=== PATIENT | female | born 1960 | race African-American/Black ===

== ENCOUNTER 2016-11-19 22:32 | Emergency (ER) | payer OTHER ==
[~2016-11-19] VITALS: Ht 157.5 cm; Wt 70.8 kg
[2016-11-19 23:04] VITALS: BP 128/85
--- NOTE | 2016-11-20 01:00 | NUR ---
PATIENT LEFT WITHOUT BEING SEEN BY DR. LOPEZ. NO FURTHER CARE PROVIDED FOR PATIENT. PATIENT'S NAME WAS CALLED THREE TIMES BY HOME HEALTH CLINICAL SUPERVISOR; NO RESPONSE.
== END 2016-11-20 01:00 | disposition left against medical advice (07) ==
LOC: MED 22:32
DX: M79.661 Pain in right lower leg (principal); Z53.21 Procedure and treatment not carried out due to patient leaving prior to being seen by health care provider

== ENCOUNTER 2017-03-08 00:23 | Emergency (ER) | payer OTHER ==
[~2017-03-08] VITALS: Ht 157.5 cm; Wt 65.8 kg
[2017-03-08 00:28] VITALS: BP 145/80
--- NOTE | 2017-03-08 00:38 | NUR ---
PATIENT AMBULATED TO ER BED 6.
--- NOTE | 2017-03-08 00:40 | NUR ---
PATIENT BEING EVALUATED BY DR. WALTON.
--- NOTE | 2017-03-08 00:49 | NUR ---
56Y/F PATIENT PRESENTS TO ED WITH C/O LACERATION TO LT.THUMB . PT STATES RT THUMB LACERATION, SHE SLICED HER THUMB WITH BROKEN CERAMICS AT 1900. DENIES N/V/D; SKIN IS PINK/WARM/DRY, LT. THUMB LACERATION; AAOX4 WITH EVEN AND STEADY GAIT; LUNGS CLEAR BL; HR EVEN AND REGULAR; PT DENIES ANY FEVER, CP, SOB, OR COUGH AT THIS TIME; PATIENT STATES PAIN OF 5/10 AT THIS TIME; VSS; PATIENT POSITIONED FOR COMFORT; HOB ELEVATED; BEDRAILS UP X2; BED DOWN. ER MD MADE AWARE OF PT STATUS.
[2017-03-08 01:00] VITALS: BP 128/74
--- NOTE | 2017-03-08 01:00 | NUR ---
Patient discharged with v/s stable. Written and verbal after care instructions given and explained. Patient verbalized understanding. Ambulatory with steady gait. All questions addressed prior to discharge. Advised to follow up with PMD.
== END 2017-03-08 01:00 | disposition home or self-care (01) ==
LOC: MED 00:23
DX: S61.011A Laceration without foreign body of right thumb without damage to nail, initial encounter (principal); I10 Essential (primary) hypertension; Z88.1 Allergy status to other antibiotic agents; Z88.8 Allergy status to other drugs, medicaments and biological substances; Z90.710 Acquired absence of both cervix and uterus; W26.8XXA Contact with other sharp object(s), not elsewhere classified, initial encounter; Y93.89 Activity, other specified; Y92.89 Other specified places as the place of occurrence of the external cause; Y99.8 Other external cause status
CPT/HCPCS: 12001; 99283

== ENCOUNTER 2017-08-22 18:52 | Inpatient (IN) | payer OTHER ==
[~2017-08-22] VITALS: Ht 157.5 cm; Wt 67.6 kg
[2017-08-22 19:36] VITALS: BP 126/80
--- NOTE | 2017-08-22 21:00 | NUR ---
TO ER BED 6
--- NOTE | 2017-08-22 21:16 | NUR ---
56Y/F PT. PRESENTS TO ED WITH C/O CHEST PAIN X 2DAYS. PT. STATES PAIN WHEN LYING DOWN, RADIATES TO BACK. NO TRAUMA, HX. HTN, DM, HIGH CHOLEATEROL. AAO X4, AMBULATORY WITH ATEDYA GIT. RESPIRATIONS ROOM AIR, EVEN AND UNLABORED. C/O PAIN 07/07, VSS, ER MADE AWARE OF PT. STATUS.
--- NOTE | 2017-08-22 21:35 | NUR ---
Patient being evaluated by Dr. Reyna at bedside.
[2017-08-22] MEDS ORDERED: NITROGLYCERIN 0.4 MG TAB SL ONE (21:50)
[2017-08-22] MEDS ORDERED: ASPIRIN 81 MG TAB.CHEW PO ONE (21:50)
[2017-08-22 22:24] LABS: BASOPHILS # (AUTO) 0.3 K/uL (0.00-0.22); EOSINOPHILS # (AUTO) 0.4 K/uL (0-0.4); HEMATOCRIT 35.5 % (36-48); HEMOGLOBIN 12.6 g/dL (12.0-16.0); LYMPHOCYTES # (AUTO) 2.7 K/uL (2.5-16.5); MEAN CORPUSCULAR HEMOGLOBIN 30 pg (27-31); MEAN CORPUSCULAR HGB CONC 35 g/dL (33-37); MEAN CORPUSCULAR VOLUME 85 fL (80-94); MONOCYTES # (AUTO) 0.6 K/uL (0.8-1.0); NEUTROPHILS # (AUTO) 5.5 K/uL (1.8-7.7); PLATELET COUNT (AUTO) 216 K/uL (140-450); RED BLOOD CELL COUNT(AUTO) 4.18 MIL/uL (4.20-5.40); RED CELL DISTRIBUTION WIDTH 12.3 % (11.6-13.7); WHITE BLOOD COUNT (AUTO) 9.5 K/uL (4.8-10.8)
[2017-08-22] MEDS ORDERED: HYDROcodone/APAP 5/325 MG 1 TAB TAB PO ONE (22:40)
[2017-08-22 22:45] LABS: ALBUMIN 3.2 g/dL (3.4-5.0); CARBON DIOXIDE 27.8 mmol/L (21-32); CREATININE 0.9 mg/dL (0.6-1.3); POTASSIUM 3.8 mmol/L (3.5-5.1); TOTAL BILIRUBIN 0.5 mg/dL (0.0-1.0)
[2017-08-22 23:24] LABS: APPEARANCE,URINE CLEAR (CLEAR); BILIRUBIN,URINE NEGATIVE (NEGATIVE); BLOOD, URINE NEGATIVE (NEGATIVE); COLOR,URINE YELLOW (YELLOW); LEUKOCYTE ESTERASE ,URINE NEGATIVE (NEGATIVE); NITRITE, URINE NEGATIVE (NEGATIVE); PH,URINE 5.5 (5.0-9.0); UGLUCOSE 3+ (NEGATIVE)
[2017-08-22 23:36] LABS: RBC,URINE 0-5 (RARE) /HPF (0-5)
[2017-08-23] MEDS ORDERED: MORPHINE SULFATE 4 MG/ML SYR IM ONE (00:45)
[2017-08-23] MEDS ORDERED: ONDANSETRON 4 MG ODT PO ONE (00:45)
[2017-08-23] MEDS ORDERED: MORPHINE SULFATE 4 MG/ML SYR ONE (00:54)
[2017-08-23] MEDS ORDERED: ONDANSETRON 4 MG ODT ONE (00:54)
--- NOTE | 2017-08-23 01:21 | NUR ---
Pt noted resting comfortably in bed. No distress noted.
--- NOTE | 2017-08-23 02:00 | NUR ---
PT.COMPLAINS OF ITCHING AND SCRATCH THE WHOLE BODY, NOTIFY DR. BULLARD; BENADRYL 25 MG IVP ADMINISTERED ORDERED.
--- NOTE | 2017-08-23 02:10 | NUR ---
IV 20 LT FA, IVP MEDS GIVEN-NADR AT THIS TIME
[2017-08-23] MEDS ORDERED: diphenhydrAMINE 50 MG/ML VIAL ONE (02:13)
[2017-08-23] MEDS: INSULIN DETEMIR 100 UNITS/ML 10 ML VIAL SUBQ SCH ×3 (02:25→21:11)
[2017-08-23] MEDS ORDERED: INSULIN HUMAN REGULAR 100 UNITS/ML 10 ML VIAL SUBQ ONE (02:55)
[2017-08-23] MEDS ORDERED: diphenhydrAMINE 50 MG/ML VIAL IVP ONE (02:55)
--- NOTE | 2017-08-23 03:00 | NUR ---
Patient will be admitted to care of DR DOHERTY. Admited to TELE. Will go to [id number]. Belongings list completed. Report to SALVADOR.
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
[2017-08-23] MEDS: MORPHINE SULFATE 4 MG/ML SYR IVP PRN ×2 (03:21→03:26)
[2017-08-23 03:24] VITALS: BP 114/80
--- NOTE | 2017-08-23 03:27 | NUR ---
LEVEMIR INSULIN NOT ADMINISTERED PATIENT REFUSED PATIENT STATES,"I NEVER TAKEN THIS MEDICATION I DON'T WANT IT.IT WILL DROP MY BLOOD SUGAR VERY LOW THAT'S TOO MUCH INSULIN FOR ME." I EXPLAINED TO THE PATIENT THAT HER BLOOD SUGAR IS HIGH THAT'S THE REASON WHY MD ORDERED THE INSULIN PATIENT STATES,"I UNDERSTAND BUT I JUST DON'T WANT IT."SO PATIENT REFUSED THE INSULIN. PATIENT IS ALSO NPO.
--- NOTE | 2017-08-23 03:27 | NUR ---
Note roque in EDM - 08/23/17 at 0427 by MEDRJJ Patient appears to be resting comfortably in bed. Vital Signs within normal limits. Respirations even and unlabored.
--- NOTE | 2017-08-23 04:02 | NUR ---
PATIENT IS COMPLAINING THAT SHE IS FEELING ITCHY AND IS REQUESTING FOR BENADRYL MD RINCON HAS BEEN PAGED. PATIENT WANTS ME TO SUGGEST TO MD IF HE CAN ORDER DILAUDID FOR HER BECAUSE DILAUDID DOESN'T MAKE HER ITCH.MD RINCON COVERING FOR MD DOHERTY HAS BEEN PAGED.
[2017-08-23] MEDS ORDERED: HYDROmorphone 1 MG/ML AMP IVP PRN (04:15)
[2017-08-23 04:30] VITALS: BP 107/60
--- NOTE | 2017-08-23 04:38 | NUR ---
PATIENT RECEIVED A DOSE OF BENADRYL FOR ITCHING.
--- NOTE | 2017-08-23 04:59 | NUR ---
PATIENT RESTING COMFORTABLY IN BED WILL CONTINUE TO MONITOR.
[2017-08-23] MEDS ORDERED: ATOR20TA PO (05:13)
[2017-08-23] MEDS ORDERED: INSU100S22 SC (05:14)
[2017-08-23] MEDS ORDERED: LISI5TAB18 PO (05:16)
[2017-08-23] MEDS ORDERED: QUET25TA PO (05:16)
--- NOTE | 2017-08-23 05:18 | NUR ---
Patient's Plan of Care was discussed and reviewed with ENTERPRISE ARCHITECT: SALVADOR BARRY
--- NOTE | 2017-08-23 05:30 | NUR ---
PATIENT STABLE IN NO DISTRESS RESTING IN BED WITH OXYGEN AT 2L NASAL CANNULA.WILL CONTINUE TO MONITOR.
--- NOTE | 2017-08-23 06:41 | NUR ---
PATIENT HAS BEEN SCREENED AND CATEGORIZED LOW NUTRITION RISK. PATIENT WILL BE SEEN WITHIN 7 DAYS OF ADMISSION. 08/29/17 TARA BRANHAM MS, RDN Addendum: 08/24/17 at [address] PATIENT HAS BEEN RESCREENED AND RECATEGORIZED MODERATE NUTRITION RISK. PATIENT WILL BE SEEN WITHIN 3-5 DAYS OF ADMISSION 08/26/17 - 08/28/[address]
--- NOTE | 2017-08-23 07:15 | NUR ---
RECEIVED PATIENT REPORT AT BEDSIDE. PATIENT AWAKE, ALERT AND ORIENTED. NO S/S OF DISTRESS NOTED. PATIENT ON 2L O2 VIA NC. NO SOB. PATIENT REPORTS 10/10 PRESSURE PAIN ON HER CHEST. WILL MEDICATE. PATIENT ON TELE MONITORING. BED LOWERED WITH CALL LIGHT WITHIN REACH. WILL CONTINUE TO MONITOR
--- NOTE | 2017-08-23 07:23 | NUR ---
PATIENT SLEEPING REPORT ENDORSED TO HERBERT MEI. HE WILL RESUME CARE OF THE PATIENT.
[2017-08-23 08:00] VITALS: BP 109/70
[2017-08-23] MEDS: ENOXAPARIN 40 MG/0.4 ML SYR SUBQ SCH (08:21)
[2017-08-23] MEDS: BLOOD GLUCOSE MONITORING 1 DEV DEV FS SCH ×5 (08:22→21:05)
[2017-08-23] MEDS ORDERED: ATORVASTATIN 20 MG TAB PO SCH (09:00)
[2017-08-23] MEDS ORDERED: ENOXAPARIN 40 MG/0.4 ML SYR SUBQ SCH (09:00)
[2017-08-23] MEDS ORDERED: LISINOPRIL 5 MG TAB PO SCH (09:00)
[2017-08-23 09:57] LABS: PROTHROMBIN TIME 9.5 secs (10.8-13.4)
[2017-08-23] MEDS ORDERED: REGADENOSON 0.4 MG/5 ML SYR IV SCH (11:30)
[2017-08-23] MEDS ORDERED: NITROGLYCERIN 2% 1 GM PKT TP SCH (11:30)
[2017-08-23 12:00] VITALS: BP 113/71
[2017-08-23] MEDS: INSULIN LISPRO SLIDING SCALE 100 UNITS/ML VIAL SUBQ PRN ×3 (12:34→21:10)
[2017-08-23] MEDS: HYDROmorphone PFS 2 MG/ML SYR IVP PRN ×3 (13:10→22:10)
--- NOTE | 2017-08-23 14:00 | NUR ---
PATIENT SEEN BY DR DOHERTY
[2017-08-23] MEDS: TRIAMCINOLONE 0.1% CRM 15 GM TUBE TP PRN (15:36)
[2017-08-23 16:00] VITALS: BP 103/68
--- NOTE | 2017-08-23 19:23 | NUR ---
PATIENT REPORT GIVEN AT BEDSIDE. PATIENT ENDORSED IN STABLE CONDITION
--- NOTE | 2017-08-23 19:24 | NUR ---
PATIENT IS CURRENTLY AWAKE ALERT ORIENTED RESTING IN BED DENIES PAIN AT THIS TIME BUT COMPLAINS OF FEELING SEVERE ITCHINESS AND COMPLAINS THAT CREAM IS NOT HELPING EFFECTIVE AND BENADRYL PO TAKES A LOT OF TIME TO WORK I PAGED MD DOHERTY EXCHANGE AND MD DAVIS IS TESTER ARMATURE OR FIELDS.WILL AWAIT FOR HIS CALL BACK.
--- NOTE | 2017-08-23 19:37 | NUR ---
MD DAVIS CALLED BACK AND WAS INFORMED THAT PATIENT IS COMPLAINING OF SEVERE ITCHINESS AND COMPLAINS THAT CREAM ORDERED FOR ITCHINESS ISN'T VERY EFFECTIVE AND ALSO THE BENADRYL PO IS TAKING A WHILE FOR IT TO WORK. GAVE NEW ORDERS.
[2017-08-23 20:00] VITALS: BP 122/65
--- NOTE | 2017-08-23 20:00 | NUR ---
Patient's Plan of Care was discussed and reviewed with INDUSTRIAL/ORGANIZATIONAL PSYCHOLOGIST: SALVADOR BARRY
[2017-08-23] MEDS: diphenhydrAMINE 50 MG/ML VIAL IVP PRN (20:23)
[2017-08-23] MEDS: NITROGLYCERIN 2% 1 GM PKT TP SCH (20:31)
--- NOTE | 2017-08-24 00:20 | NUR ---
PATIENT CURRENTLY AWAKE ON AND OFF STABLE NEEDS CONTINUE TO BE MET.VITALS STABLE WILL CONTINUE TO MONITOR.
[2017-08-24 00:23] VITALS: BP 96/68
[2017-08-24] MEDS ORDERED: HYDROcodone/APAP 5/325 MG 1 TAB TAB PO PRN (00:50)
[2017-08-24] MEDS: ACETAMINOPHEN 325 MG TAB PO PRN ×2 (01:42→10:57)
[2017-08-24] MEDS: TRIAMCINOLONE 0.1% CRM 15 GM TUBE TP PRN (02:19)
[2017-08-24] MEDS: diphenhydrAMINE 50 MG/ML VIAL IVP PRN ×3 (02:52→15:06)
[2017-08-24] MEDS: HYDROmorphone PFS 2 MG/ML SYR IVP PRN ×4 (02:53→17:46)
--- NOTE | 2017-08-24 03:00 | NUR ---
PATIENT CONTINUES TO BE STABLE COMPLAINS OF ITCHINESS BUT HAS BEEN MEDICATED ALREADY.PATIENT ABLE TO VERBALIZE NEEDS AND NEEDS CONTINUE TO BE MET.CALL LIGHT WITHIN REACH.
[2017-08-24 04:07] VITALS: BP 118/82
[2017-08-24] MEDS: NITROGLYCERIN 2% 1 GM PKT TP SCH ×2 (05:00→13:00)
--- NOTE | 2017-08-24 05:03 | NUR ---
PATIENT REFUSED NITROPATCH PATIENT STATES,"IT GIVES ME BAD HEADACHES I DON'T WANT IT." PATIENT REFUSED.
[2017-08-24] MEDS: BLOOD GLUCOSE MONITORING 1 DEV DEV FS SCH ×3 (05:53→16:30)
[2017-08-24] MEDS: INSULIN LISPRO SLIDING SCALE 100 UNITS/ML VIAL SUBQ PRN (06:07)
[2017-08-24] MEDS: ONDANSETRON 4 MG/2 ML VIAL IVP PRN ×2 (06:16→12:14)
--- NOTE | 2017-08-24 06:33 | NUR ---
PATIENT IS CURRENTLY RESTING IN BED NAUSEA IS SUBSIDING SLOWLY PATIENT'S NEED HAVE BEEN MET THROUGHOUT THE SHIFT.CALL LIGHT WITHIN REACH.
--- NOTE | 2017-08-24 07:31 | NUR ---
REPORT ENDORSED TO HERBERT RIVAS SHE WILL RESUME CARE OF THE PATIENT.
--- NOTE | 2017-08-24 07:32 | NUR ---
RECEIVED PT ON BED, AWAKE. NO SOB NOTED. NO C/O PAIN AT THIS TIME. IV TO LT WRIST PATENT AND INTACT. CHEST CLEAR. ABDOMEN SOFT, BOWELS SOUNDS PRESENT. NO EDEMA NOTED. NPO MAINTAINED FOR LEXISCAN AT 1230 HRS TODAY. INSTRUCTED PT TO CALL FOR ASSISTANCE, CALL LIGHT WITHIN REACH, PT VERBALIZED UNDERSTANDING.
[2017-08-24 07:37] LABS: BASOPHILS # (AUTO) 0.3 K/uL (0.00-0.22); BASOPHILS % (AUTO) 3.6 % (0.0-2.0); EOSINOPHILS # (AUTO) 0.3 K/uL (0-0.4); EOSINOPHILS % (AUTO) 4.1 % (0.0-4.0); HEMATOCRIT 36.2 % (36-48); LYMPHOCYTES # (AUTO) 2.8 K/uL (2.5-16.5); LYMPHOCYTES % (AUTO) 33.2 % (20.5-51.1); MEAN CORPUSCULAR HEMOGLOBIN 28 pg (27-31); MEAN CORPUSCULAR HGB CONC 33 g/dL (33-37); MEAN CORPUSCULAR VOLUME 85 fL (80-94); MONOCYTES # (AUTO) 0.7 K/uL (0.8-1.0); NEUTROPHILS # (AUTO) 4.3 K/uL (1.8-7.7); NEUTROPHILS % (AUTO) 51.1 % (42.2-75.2); PLATELET COUNT (AUTO) 222 K/uL (140-450); RED BLOOD CELL COUNT(AUTO) 4.26 MIL/uL (4.20-5.40); RED CELL DISTRIBUTION WIDTH 12.4 % (11.6-13.7); WHITE BLOOD COUNT (AUTO) 8.4 K/uL (4.8-10.8)
[2017-08-24 08:00] VITALS: BP 104/69
[2017-08-24 08:16] LABS: MAGNESIUM 1.9 mg/dL (1.8-2.4); PHOSPHORUS 4.2 mg/dL (2.5-4.9)
[2017-08-24 08:30] LABS: ANION GAP 7.9 (8-16); CARBON DIOXIDE 34.6 mmol/L (21-32); CREATININE 0.9 mg/dL (0.6-1.3); POTASSIUM 5.5 mmol/L (3.5-5.1)
[2017-08-24] MEDS: ENOXAPARIN 40 MG/0.4 ML SYR SUBQ SCH (08:35)
[2017-08-24] MEDS ORDERED: QUEtiapine FUMARATE 25 MG TAB PO SCH (09:00)
[2017-08-24] MEDS ORDERED: ASPIRIN 81 MG TAB.CHEW PO SCH (09:00)
[2017-08-24] MEDS ORDERED: LISINOPRIL 5 MG TAB PO SCH ×2 (09:00)
[2017-08-24 12:00] VITALS: BP 123/81
--- NOTE | 2017-08-24 12:20 | NUR ---
WHEELED TO NUCLEAR MED IN STABLE CONDITION BY GUILLAUME RAHMAN.
[2017-08-24] MEDS ORDERED: REGADENOSON 0.4 MG/5 ML SYR IV SCH (12:30)
--- NOTE | 2017-08-24 13:30 | NUR ---
LEXISCAN STRESS TEST DONE
--- NOTE | 2017-08-24 13:35 | NUR ---
[facility]. WILL ORDER PT'S DIET.
[2017-08-24] MEDS ORDERED: LORazepam 1 MG TAB PO PRN (14:05)
--- NOTE | 2017-08-24 14:32 | NUR ---
CM NOTE INITIAL REVIEW FAXED TO [facility] [phone] SANDRA SINGHA PH# [phone]
[2017-08-24] MEDS ORDERED: METOCLOPRAMIDE 10 MG/2 ML INJ VIAL IVP PRN (14:50)
--- NOTE | 2017-08-24 18:30 | NUR ---
DISCHARGE INSTRUCTIONS GIVEN TO PT WHICH VERBALIZED FULL UNDERSTANDING OF THE INSTRUCTIONS GIVEN AND THE NEED TO FOLLOW UP WITH PCP WITHIN 7 DAYS. ARM BANDS AND IV REMOVED, CANNULA TIP INTACT.
--- NOTE | 2017-08-24 18:35 | NUR ---
PT BACK FROM [facility] IN STABLE CONDITION. WILL ORDER PT'S DIET. Addendum: 08/24/17 at 1853 by Herlinda Vasquez RN DISREGARD ABOVE NOTES, WRONG ENTRY.
--- NOTE | 2017-08-24 18:45 | NUR ---
PT ESCORTED OUT TO THE PARKING LOT IN STABLE CONDITION, AMBULATORY. NO SOB NOTED. NO C/O PAIN AT THIS TIME. PT IS D/C HOME WITH DAUGHTER.
[2017-08-24] MEDS ORDERED: ATORVASTATIN 20 MG TAB PO SCH (21:00)
[2017-08-24] MEDS ORDERED: METOPROLOL 25 MG TAB PO SCH (21:00)
== END 2017-08-24 18:45 | disposition home or self-care (01) | DRG 243 ==
LOC: MED 18:52 → MTU 08-23 02:03 → OBSVTOIN 08-23 13:23
PROVIDERS: ADMIT Hospitalist; ATTEND Hospitalist
DX: K21.9 Gastro-esophageal reflux disease without esophagitis (principal); F20.9 Schizophrenia, unspecified; I10 Essential (primary) hypertension; E11.9 Type 2 diabetes mellitus without complications; E78.5 Hyperlipidemia, unspecified; F41.9 Anxiety disorder, unspecified; I25.10 Atherosclerotic heart disease of native coronary artery without angina pectoris; L30.9 Dermatitis, unspecified; Z88.6 Allergy status to analgesic agent; Z88.2 Allergy status to sulfonamides; Z88.1 Allergy status to other antibiotic agents; Z88.8 Allergy status to other drugs, medicaments and biological substances; Z79.899 Other long term (current) drug therapy
CPT/HCPCS: 96372; 96374; 99285; G0378; 36415; 71010; 80048; 80053; 81001; 82550; 82553; 82948; 83735; 84100; 84132; 84484; 85025; 85610; 85730; 87081; 87086; 93005; 93017; A9500; A9502; J1170; J1200; J1650; J1815; J2270; J2405; J2765; J2785; Q0092; Q0163; S0119

== ENCOUNTER 2018-02-28 13:55 | Emergency (ER) | payer OTHER ==
[~2018-02-28] VITALS: Ht 157.5 cm; Wt 56.7 kg
[~2018-02-28 13:55] MED LIST: ATOR20TA PO; INSU100S22 SC; LISI5TAB18 PO; QUET25TA PO
[2018-02-28 14:06] VITALS: BP 119/72
--- NOTE | 2018-02-28 14:40 | NUR ---
PATIENT CALLED FROM LOBBY NO ANSWER PATIENT IS LWBS.
== END 2018-02-28 14:40 | disposition left against medical advice (07) ==
LOC: MED 13:55
DX: L03.116 Cellulitis of left lower limb (principal); Z53.21 Procedure and treatment not carried out due to patient leaving prior to being seen by health care provider

== ENCOUNTER 2018-08-05 01:37 | Inpatient (IN) | payer OTHER ==
[2018-08-05] VITALS (7 sets, daily range): BP systolic 72–114; BP diastolic 43–68
[~2018-08-05] VITALS: Ht 157.5 cm; Wt 63.0 kg
--- NOTE | 2018-08-05 01:37 | NUR ---
57/F BIBA FROM HOME FOR POSSIBLE SYNCOPE AND CHEST PAIN. PT STATED THAT SHE WOKE UP, FELT NAUSEATED, WENT TO THE RESTROOM, PT STATED SHE WOKE UP ON THE BATHROOM FLOOR. PT TOOK A "QUARTER OF RICE KRISPY EDIBLE" ON ROUTE, PT DEVELOPED CHEST PAIN. PT WAS GIVEN ASPIRIN AND STARTED 1L NS BOLUS ON L FA 20G. PT AOX4, BEDREST AT THIS TIME, RR EVEN AND UNLABORED. PT REPORTS PRESSURE-LIKE L SIDED CP, RADIATING TO L SHOULDER. PT REPORTS DIZZINESS AND WEAKNESS. LUNG SOUNDS CLEAR BL. BS ACTIVE X4, ABD SOFT ROUND NONTENDER. BS 185 AT THIS TIME. HX HTN, DM, ANXIETY, HLD
--- NOTE | 2018-08-05 01:37 | NUR ---
LENNY ALS TO ER BED 4
[2018-08-05] MEDS ORDERED: NACL 0.9% 1,000 ML IV ONE ×2 (01:45→03:40)
[2018-08-05] MEDS ORDERED: ALPR1TAB2 PO (01:56)
[2018-08-05] MEDS ORDERED: QUET100T PO (01:56)
[2018-08-05] MEDS ORDERED: GABA300C PO (01:56)
[2018-08-05] MEDS ORDERED: METF750T PO (01:56)
[2018-08-05 02:26] LABS: BASOPHILS # (AUTO) 0.1 K/uL (0.00-0.22); BASOPHILS % (AUTO) 0.8 % (0.0-2.0); EOSINOPHILS # (AUTO) 0.2 K/uL (0-0.4); EOSINOPHILS % (AUTO) 2.2 % (0.0-4.0); HEMATOCRIT 33.5 % (36-48); HEMOGLOBIN 11.1 g/dL (12.0-16.0); LYMPHOCYTES # (AUTO) 2.6 K/uL (2.5-16.5); LYMPHOCYTES % (AUTO) 31.9 % (20.5-51.1); MEAN CORPUSCULAR HEMOGLOBIN 29 pg (27-31); MEAN CORPUSCULAR HGB CONC 33 g/dL (33-37); MEAN CORPUSCULAR VOLUME 86.9 fL (80-94); MONOCYTES # (AUTO) 0.7 K/uL (0.8-1.0); MONOCYTES % (AUTO) 8.7 % (1.7-9.3); NEUTROPHILS # (AUTO) 4.6 K/uL (1.8-7.7); NEUTROPHILS % (AUTO) 56.4 % (42.2-75.2); PLATELET COUNT (AUTO) 250 K/uL (140-450); RED BLOOD CELL COUNT(AUTO) 3.86 MIL/uL (4.20-5.40); RED CELL DISTRIBUTION WIDTH 13.6 % (11.6-13.7); WHITE BLOOD COUNT (AUTO) 8.2 K/uL (4.8-10.8)
[2018-08-05 02:51] LABS: ALBUMIN 3.3 g/dL (3.4-5.0); ANION GAP 12.4 (8-16); CARBON DIOXIDE 27.3 mmol/L (21-32); CREATININE 1.7 mg/dL (0.6-1.3); POTASSIUM 3.7 mmol/L (3.5-5.1); TOTAL BILIRUBIN 0.3 mg/dL (0.0-1.0)
[2018-08-05 02:58] LABS: CREATINE KINASE MB 0.9 ng/mL (0-3.6)
--- NOTE | 2018-08-05 03:25 | NUR ---
PT HAS EYES CLOSED, AROUSABLE TO NAME. PT CONVERSING WITH MD @ BEDSIDE, ANSWERING QUESTIONS APPROPRIATELY. WILL CONTINUE TO MONITOR.
[2018-08-05 03:29] LABS: BARBITURATE, URINE NEG. ng/ml (NEG <=200); BENZODIAZEPINE, URINE POS. ng/mL (NEG <=200); CANNABINOID, URINE POS. ng/mL (NEG <=50); COCAINE, URINE NEG. ng/mL (NEG <=300); OPIATE, URINE NEG. ng/mL (NEG <=2000); PHENCYCLIDINE SCREEN,URINE NEG. ng/mL (NEG <=25)
[2018-08-05] MEDS ORDERED: KETOROLAC 15 MG/ML VIAL IVP ONE (03:30)
[2018-08-05] MEDS ORDERED: fentaNYL 0.05 MG/ML VIAL IVP ONE (03:40)
--- NOTE | 2018-08-05 04:30 | NUR ---
DR. HUTOTN SPOKE WITH DR. DOHERTY REGARDING LOW BLOOD PRESSURE, MD AWARE OF TRENDING BPS BETWEEN 80-90S, PT ASYMPTOMATIC, TALKING TO STAFF, ABLE TO EXPRESS NEEDS AND WANTS. PT DENIES NUMBNESS TINGLING, DIZZINESS. NO ACUTE DISTRESS NOTED. WILL CONTINUE TO OBSERVE
[2018-08-05] MEDS ORDERED: ONDANSETRON 4 MG/2 ML VIAL IVP PRN (04:55)
[2018-08-05] MEDS ORDERED: ACETAMINOPHEN 325 MG TAB PO PRN (04:55)
[2018-08-05] MEDS ORDERED: HYDROcodone/APAP 5/325 MG 1 TAB TAB PO PRN (04:55)
--- NOTE | 2018-08-05 06:20 | NUR ---
RECEIVED REPORT ON PT IN STABLE CONDITION FROM ER NURSE . CAME BY VALORIE. TELE WITH O22L/NC. BEDREST. WITH IVF INFUSING WELL ON THE LEFT FA #20. POSITIONED COMFORTABLY IN BED. BP STILL LOW BUT ER NURSE SAID AWARE AND ON IVF 150ML /HR . HAD 2 L NS BOLUS IN ER. WILL ENDORSED TO AM NURSE.
--- NOTE | 2018-08-05 06:25 | NUR ---
PATIENT ADMITTED TO THE CARE OF DR. DOHERTY. Admited to TELEMETRY FLOOR. Will go to room 111B. Belongings list completed. Report to LINUS GODINEZ.
--- NOTE | 2018-08-05 07:00 | NUR ---
RECEIVED REPORT ABOUT THE PT FROM DRAGSAW OPERATOR NURSELINUS, PT IS AWAKE AND LYING ON THE BED WITH SIDE RAILS UP AND CALL LIGHT WITHIN REACH, BED IN LOW POSITION AND FALL PRECAUTION ENFORCED, YELLOW GOWN, YELLOW SIGN, YELLOW ARM BAND WERE PLACED, PT HAS AN IV LINE ON THE LEFT HAND G. 20 WITH NS RUNNING AT 150 ML/HR, INTACT. VITAL SIGNS WAS TAKEN AND IS WITHIN NORMAL LIMITS, PT IS ON O2 2L NC, PT DENIES PAIN AT THIS TIME. WILL CONTINUE TO MONITOR PT.
--- NOTE | 2018-08-05 08:00 | NUR ---
PT'S VITAL SIGNS WAS TAKEN AND BP READING IS 84/45, 83/44, PULSE IS 89, RESPIRATION IS 18/MIN AND O2 SATURATION IS 99%. WILL INFORM DR. GAMEZ OF THE BP READINGS.
--- NOTE | 2018-08-05 08:06 | NUR ---
PAGED DR. GAMEZ TO INFORM MD OF THE PT'S BP READINGS.
--- NOTE | 2018-08-05 08:24 | NUR ---
PATIENT HAS BEEN SCREENED AND CATEGORIZED MODERATE NUTRITION RISK. PATIENT WILL BE SEEN WITHIN 3-5 DAYS OF ADMISSION. 08/07/18 08/09/[address]
--- NOTE | 2018-08-05 11:00 | NUR ---
RECEIVED A CALL BACK FROM DR. GAMEZ AND TOLD THE MD ABOUT THE PT'S PAIN MED OF NORCO, INFORMED MD THAT PT VERBALIZED THAT SHE IS HAVING ITCHINESS EVERY TIME SHE TAKES NORCO AND THAT FENTANYL IS THE PAIN MEDICATION THAT WORKS FOR HER WHICH , DR. GAMEZ MADE A TELEPHONE ORDER FOR A ONE TIME ADMINISTRATION OF FENTANYL 0.025 MG, IVP, ACKNOWLEDGED AND TELEPHONE ORDER MADE BY MD WAS READ BACK AND MD CONFIRMED.
--- NOTE | 2018-08-05 11:00 | NUR ---
PT VERBALIZED A PAIN RATE OF 8/10 AND FENTANYL WAS GIVEN VIA IV PUSH AT 0.025MG AND PT TOLERATED IT, WILL CONTINUE TO MONITOR PT.
[2018-08-05] MEDS ORDERED: fentaNYL 0.05 MG/ML VIAL IVP SCH (11:30)
[2018-08-05] MEDS: NACL 0.9% 1,000 ML IV SCH ×2 (11:57→14:54)
--- NOTE | 2018-08-05 12:01 | NUR ---
PT IS AWAKE AND VITAL SIGNS WAS CHECKED AND BP IS 109/70, PULSE IS 75, RESPIRATION IS 18/MIN AND O2 SATURATION IS AT 98%, PT VERBALIZED A PAIN RATE OF 8/10. FENTANYL IV PUSH 0.025MG/ 0.5ML WAS GIVEN. WILL CONTINUE TO MONITOR PT.
[2018-08-05 13:10] LABS: BASOPHILS % (AUTO) 0.6 % (0.0-2.0); EOSINOPHILS # (AUTO) 0.3 K/uL (0-0.4); EOSINOPHILS % (AUTO) 3.3 % (0.0-4.0); HEMATOCRIT 34.5 % (36-48); HEMOGLOBIN 11.3 g/dL (12.0-16.0); LYMPHOCYTES # (AUTO) 3.1 K/uL (2.5-16.5); LYMPHOCYTES % (AUTO) 38.1 % (20.5-51.1); MEAN CORPUSCULAR HEMOGLOBIN 28 pg (27-31); MEAN CORPUSCULAR HGB CONC 33 g/dL (33-37); MEAN CORPUSCULAR VOLUME 86.9 fL (80-94); MONOCYTES # (AUTO) 0.6 K/uL (0.8-1.0); MONOCYTES % (AUTO) 7.6 % (1.7-9.3); NEUTROPHILS # (AUTO) 4.1 K/uL (1.8-7.7); NEUTROPHILS % (AUTO) 50.4 % (42.2-75.2); PLATELET COUNT (AUTO) 240 K/uL (140-450); RED BLOOD CELL COUNT(AUTO) 3.97 MIL/uL (4.20-5.40); RED CELL DISTRIBUTION WIDTH 14.1 % (11.6-13.7); WHITE BLOOD COUNT (AUTO) 8.2 K/uL (4.8-10.8)
[2018-08-05 13:45] LABS: ALBUMIN 3.2 g/dL (3.4-5.0); ANION GAP 12.4 (8-16); CARBON DIOXIDE 25.6 mmol/L (21-32); CREATININE 0.9 mg/dL (0.6-1.3); TOTAL BILIRUBIN 0.2 mg/dL (0.0-1.0)
--- NOTE | 2018-08-05 14:10 | NUR ---
DR. GAMEZ CAME TO THE PT'S ROOM AND SPOKE TO PT AND PT VERBALIZED TO DR. GAMEZ WANTING TO BE DISCHARGE. PT'S V/S WERE WITHIN NORMAL LIMITS, BP IS 114/68, PULSE IS 84, O2 SATURATION AT 98% AND RESPIRATION IS EVEN AT 18/MIN. DR. GAMEZ EXPLAINED AND TOLD PT THE CONSEQUENCE AND PT VERBALIZED UNDERSTANDING. DR. GAMEZ SAID THAT HE WILL PLACE AN ORDER FOR DISCHARGE.
--- NOTE | 2018-08-05 14:25 | NUR ---
PT'S IV FLUID WAS STOPPED NOW AND IV LINE WAS REMOVED.
--- NOTE | 2018-08-05 15:00 | NUR ---
DISCHARGED PT VIA WHEELCHAIR, DISCHARGE TEACHINGS AND INSTRUCTIONS GIVEN AND PT VERBALIZED UNDERSTANDING. IV LINE AND ARM BAND WAS REMOVED. PT IS STABLE AT THIS TIME AND DENIES ANY PAIN.
== END 2018-08-05 15:00 | disposition home or self-care (01) | DRG 204 ==
LOC: MED 01:37 → MTU 04:57
PROVIDERS: ADMIT Internal Medicine; ATTEND Internal Medicine
DX: I95.1 Orthostatic hypotension (principal); N17.0 Acute kidney failure with tubular necrosis; E11.9 Type 2 diabetes mellitus without complications; E86.0 Dehydration; F31.9 Bipolar disorder, unspecified; I10 Essential (primary) hypertension; W18.30XA Fall on same level, unspecified, initial encounter; F12.90 Cannabis use, unspecified, uncomplicated; R07.89 Other chest pain; Z88.1 Allergy status to other antibiotic agents; Z88.5 Allergy status to narcotic agent; Z79.4 Long term (current) use of insulin; Z79.899 Other long term (current) drug therapy; Y93.89 Activity, other specified; Y92.89 Other specified places as the place of occurrence of the external cause; Y99.8 Other external cause status; Z90.710 Acquired absence of both cervix and uterus
CPT/HCPCS: 36415; 71045; 80053; 80305; 82550; 82553; 83605; 83690; 84484; 85025; 87081; 93005; 96361; 96374; 99285; J1644; J1885; J3010; J7030; Q0092

== ENCOUNTER 2018-08-20 08:02 | Emergency (ER) | payer OTHER ==
[~2018-08-20] VITALS: Ht 167.6 cm; Wt 66.9 kg
[~2018-08-20 08:02] MED LIST changes: +ALPR1TAB2 PO; +GABA300C PO; +METF750T PO; +QUET100T PO
--- NOTE | 2018-08-20 08:03 | NUR ---
PT LENNY BLS TO ER BED 08
[2018-08-20 08:05] VITALS: BP 175/86
[2018-08-20] MEDS ORDERED: NACL 0.9% 1,000 ML IV ONE ×2 (08:10→09:35)
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
[2018-08-20] MEDS ORDERED: fentaNYL 0.05 MG/ML VIAL IVP ONE ×2 (08:15→11:45)
[2018-08-20 08:39] LABS: BASOPHILS # (AUTO) 0.1 K/uL (0.00-0.22); EOSINOPHILS # (AUTO) 0.4 K/uL (0-0.4); HEMATOCRIT 39.8 % (36-48); HEMOGLOBIN 13.1 g/dL (12.0-16.0); LYMPHOCYTES % (AUTO) 27.8 % (20.5-51.1); MEAN CORPUSCULAR HEMOGLOBIN 29 pg (27-31); MEAN CORPUSCULAR HGB CONC 33 g/dL (33-37); MEAN CORPUSCULAR VOLUME 86.5 fL (80-94); MONOCYTES # (AUTO) 0.5 K/uL (0.8-1.0); MONOCYTES % (AUTO) 7.4 % (1.7-9.3); NEUTROPHILS # (AUTO) 4.2 K/uL (1.8-7.7); NEUTROPHILS % (AUTO) 58.8 % (42.2-75.2); PLATELET COUNT (AUTO) 210 K/uL (140-450); RED CELL DISTRIBUTION WIDTH 13.9 % (11.6-13.7); WHITE BLOOD COUNT (AUTO) 7.2 K/uL (4.8-10.8)
[2018-08-20 08:52] LABS: ANION GAP 14.2 (8-16); CARBON DIOXIDE 27.1 mmol/L (21-32); CHLORIDE 105 mmol/L (98-107); GFR ARICAN-AMERICAN 74 mL/min (>90); GLUCOSE 255 mg/dL (74-106); POTASSIUM 4.3 mmol/L (3.5-5.1); SODIUM SERUM 142 mmol/L (136-145); UREA NITROGEN, BLOOD 19 mg/dL (7-18)
[2018-08-20 08:57] LABS: ACETAMINOPHEN < 0.5 ug/ml (10-30); ALBUMIN 3.8 g/dL (3.4-5.0); ASPARTATE AMINOTRANSFERASE 24 U/L (15-37); SALICYLATE < 2.8 mg/dL (2.8-20.0); TOTAL BILIRUBIN 0.3 mg/dL (0.0-1.0)
--- NOTE | 2018-08-20 09:00 | NUR ---
PT TAKEN TO CT VIA [facility], ACCOMPANIED BY MEN'S GOLF COACH.
--- NOTE | 2018-08-20 09:18 | NUR ---
PT RETURNED FROM CT VIA [facility], ACCOMPANIED BY SUPERVISORY CIVIL ENGINEER.
--- NOTE | 2018-08-20 09:18 | NUR ---
RETURNED FROM RADIOLOGY VIA [facility]
--- NOTE | 2018-08-20 09:28 | NUR ---
Patient being evaluated by DR CHEEMA at bedside.
[2018-08-20] MEDS ORDERED: ONDANSETRON 4 MG/2 ML VIAL IVP ONE (09:30)
[2018-08-20] MEDS ORDERED: BACITRACIN OINT 500 UNITS/GM PKT TP ONE ×2 (09:30→09:37)
[2018-08-20] MEDS ORDERED: HYDROmorphone PFS 2 MG/ML SYR IVP ONE (09:30)
[2018-08-20] MEDS ORDERED: INSULIN REGULAR, HUMAN 100 UNIT/ML VIAL SUBQ ONE (09:35)
--- NOTE | 2018-08-20 09:48 | NUR ---
CLEANED LAC WOUND AT SCLAP WITH NSS & APPLIED WITH BACITRACIN. PT TOLERATED PROCEDURE WELL.
--- NOTE | 2018-08-20 09:53 | NUR ---
PT CAN'T PROVIDE URINE AT THIS TIME.
[2018-08-20 11:02] LABS: APPEARANCE,URINE CLEAR (CLEAR); BILIRUBIN,URINE NEGATIVE (NEGATIVE); BLOOD, URINE NEGATIVE (NEGATIVE); COLOR,URINE YELLOW (YELLOW); LEUKOCYTE ESTERASE ,URINE NEGATIVE (NEGATIVE); NITRITE, URINE NEGATIVE (NEGATIVE); PH,URINE 6.5 (5.0-9.0); UGLUCOSE 2+ (NEGATIVE)
[2018-08-20 11:04] LABS: BARBITURATE, URINE NEG. ng/ml (NEG <=200); BENZODIAZEPINE, URINE POS. ng/mL (NEG <=200); CANNABINOID, URINE POS. ng/mL (NEG <=50); COCAINE, URINE NEG. ng/mL (NEG <=300); OPIATE, URINE NEG. ng/mL (NEG <=2000); PHENCYCLIDINE SCREEN,URINE NEG. ng/mL (NEG <=25)
[2018-08-20 11:05] LABS: RBC,URINE 0-5 (RARE) /HPF (0-5); WBC,URINE 0-5 (RARE) /HPF (0-5)
[2018-08-20] MEDS ORDERED: LORazepam 2 MG/ML VIAL IVP ONE (11:20)
[2018-08-20 12:18] VITALS: BP 149/72
--- NOTE | 2018-08-20 12:18 | NUR ---
Patient discharged with v/s stable. Written and verbal after care instructions given and explained. Patient alert, oriented and verbalized understanding of instructions. Wheel Chair Assisted with to car. All questions addressed prior to discharge. ID band removed. Patient advised to follow up with PMD. Rx of PERCOCET given. Patient educated on indication of medication including possible reaction and side effects. Opportunity to ask questions provided and answered.
== END 2018-08-20 12:18 | disposition home or self-care (01) ==
LOC: MED 08:02
DX: S01.01XA Laceration without foreign body of scalp, initial encounter (principal); E11.9 Type 2 diabetes mellitus without complications; I10 Essential (primary) hypertension; E78.00 Pure hypercholesterolemia, unspecified; Z90.710 Acquired absence of both cervix and uterus; Z88.6 Allergy status to analgesic agent; Z88.5 Allergy status to narcotic agent; Z79.84 Long term (current) use of oral hypoglycemic drugs; W18.30XA Fall on same level, unspecified, initial encounter; Y93.89 Activity, other specified; Y92.009 Unspecified place in unspecified non-institutional (private) residence as the place of occurrence of the external cause; Y99.8 Other external cause status
CPT/HCPCS: 36415; 70450; 71045; 80053; 80305; 81001; 82948; 84484; 85025; 96361; 96372; 96374; 96375; 96376; 99284; G0480; G0482; J1170; J1815; J2060; J2405; J3010; J7030; Q0092

== ENCOUNTER 2019-09-08 18:54 | Emergency (ER) | payer OTHER ==
[~2019-09-08] VITALS: Ht 157.5 cm; Wt 62.1 kg
[~2019-09-08 18:54] MED LIST changes: -LISI5TAB18 PO; -QUET25TA PO
[2019-09-08 19:09] VITALS: BP 127/79
--- NOTE | 2019-09-08 19:17 | NUR ---
PT AMBULATED TO LOBBY WITH VSS. URINE SAMPLE PROVIDED.
--- NOTE | 2019-09-08 20:22 | NUR ---
PT AMBULATED TO BED 02.
--- NOTE | 2019-09-08 20:29 | NUR ---
DR. HUTTON BEDSIDE EVALUATING PT
--- NOTE | 2019-09-08 20:38 | NUR ---
58 Y/O FEMALE C/O N/V/D AND ABD PAIN X1 DAY. PT STATES V/D YESTERDAY, NONE TODAY. 5/10 ACHING PAIN TO ABD. DENIES FEVER OR CHILLS. ABD SOFT, ROUND, TENDER TO PALP. BOWEL SOUNDS X4 QUAD. PT CALM AND PLEASANT SITTING IN BED WITH FAMILY MEMBER AT BEDSIDE. MEDHX: DM, HTN, BIPOLAR ALLERGIES: BACTRIM, MORPHINE, TORADOL
[2019-09-08] MEDS ORDERED: NACL 0.9% 1,000 ML IV ONE (20:40)
[2019-09-08] MEDS ORDERED: fentaNYL 0.05 MG/ML VIAL IVP ONE (20:40)
[2019-09-08] MEDS ORDERED: ONDANSETRON 4 MG/2 ML VIAL IVP ONE (20:40)
[2019-09-08 21:26] LABS: BASOPHILS # (AUTO) 0.1 K/uL (0.00-0.22); BASOPHILS % (AUTO) 0.7 % (0.0-2.0); EOSINOPHILS # (AUTO) 0.3 K/uL (0-0.4); EOSINOPHILS % (AUTO) 3.9 % (0.0-4.0); HEMATOCRIT 38.2 % (36-48); HEMOGLOBIN 12.6 g/dL (12.0-16.0); LYMPHOCYTES # (AUTO) 2.3 K/uL (2.5-16.5); LYMPHOCYTES % (AUTO) 29.2 % (20.5-51.1); MEAN CORPUSCULAR HEMOGLOBIN 28 pg (27-31); MEAN CORPUSCULAR HGB CONC 33 g/dL (33-37); MEAN CORPUSCULAR VOLUME 86.1 fL (80-94); MONOCYTES # (AUTO) 0.5 K/uL (0.8-1.0); MONOCYTES % (AUTO) 6.1 % (1.7-9.3); NEUTROPHILS # (AUTO) 4.7 K/uL (1.8-7.7); NEUTROPHILS % (AUTO) 60.1 % (42.2-75.2); PLATELET COUNT (AUTO) 228 K/uL (140-450); RED BLOOD CELL COUNT(AUTO) 4.43 MIL/uL (4.20-5.40); RED CELL DISTRIBUTION WIDTH 13.6 % (11.6-13.7); WHITE BLOOD COUNT (AUTO) 7.8 K/uL (4.8-10.8)
[2019-09-08 21:29] LABS: APPEARANCE,URINE CLEAR (CLEAR); BILIRUBIN,URINE NEGATIVE (NEGATIVE); BLOOD, URINE NEGATIVE (NEGATIVE); COLOR,URINE YELLOW (YELLOW); LEUKOCYTE ESTERASE ,URINE TRACE (NEGATIVE); NITRITE, URINE NEGATIVE (NEGATIVE); UGLUCOSE NEGATIVE (NEGATIVE)
[2019-09-08 21:45] LABS: ALBUMIN 3.6 g/dL (3.4-5.0); CARBON DIOXIDE 25.8 mmol/L (21-32); POTASSIUM 3.8 mmol/L (3.5-5.1); TOTAL BILIRUBIN 0.2 mg/dL (0.0-1.0)
--- NOTE | 2019-09-08 21:56 | NUR ---
PT STATES RELIEF OF PAIN AT THIS TIME 10/07 TO ABD
[2019-09-08 22:06] LABS: RBC,URINE 0-5 /HPF (0-5); WBC,URINE 0-5 /HPF (0-5)
[2019-09-08 22:31] VITALS: BP 122/76
--- NOTE | 2019-09-08 22:32 | NUR ---
Patient discharged with v/s stable. Written and verbal after care instructions given and explained. Patient alert, oriented and verbalized understanding of instructions. Ambulatory with steady gait. All questions addressed prior to discharge. ID band removed. Patient advised to follow up with PMD. Rx of BENTYL given. Patient educated on indication of medication including possible reaction and side effects. Opportunity to ask questions provided and answered. PT ACCOMPANIED BY SON UPON DISCHARGE.
== END 2019-09-08 22:32 | disposition home or self-care (01) ==
LOC: MED 18:54
DX: R10.11 Right upper quadrant pain (principal); R11.2 Nausea with vomiting, unspecified; E11.9 Type 2 diabetes mellitus without complications; I10 Essential (primary) hypertension; Z79.899 Other long term (current) drug therapy; Z79.4 Long term (current) use of insulin; Z88.1 Allergy status to other antibiotic agents; Z88.5 Allergy status to narcotic agent; Z88.2 Allergy status to sulfonamides; Z88.8 Allergy status to other drugs, medicaments and biological substances
CPT/HCPCS: 36415; 80053; 81001; 83690; 85025; 96361; 96374; 96375; 99283; J2405; J3010

== ENCOUNTER 2019-11-13 17:33 | Emergency (ER) | payer OTHER ==
[~2019-11-13] VITALS: Ht 157.5 cm; Wt 66.2 kg
[2019-11-13 17:59] VITALS: BP 112/71
--- NOTE | 2019-11-13 18:13 | NUR ---
C/O L HIP PAIN RADIATING TO L LEG X 4 DAYS, 03/07 & ACHING. PT DENIES INJURY. NO OBVIOUS DEFORMITY NOTED TO AREA. PT IS AMBULATORY WITH STEADY GAIT. DENIES NUMBNESS/TINGLING TO LLE. BED IN LOW POSITION, SIDE RAIL UP X1
[2019-11-13 19:21] VITALS: BP 112/71
--- NOTE | 2019-11-13 19:21 | NUR ---
PATIENT LEFT WITHOUT BEING SEEN BY . NO FURTHER CARE PROVIDED FOR PATIENT.
== END 2019-11-13 19:21 | disposition left against medical advice (07) ==
LOC: MED 17:33
DX: M25.552 Pain in left hip (principal); Z53.21 Procedure and treatment not carried out due to patient leaving prior to being seen by health care provider

== ENCOUNTER 2020-08-24 13:51 | Emergency (ER) | payer OTHER ==
[~2020-08-24] VITALS: Ht 157.5 cm; Wt 67.1 kg
[2020-08-24 14:21] VITALS: BP 125/52
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
--- NOTE | 2020-08-24 15:10 | NUR ---
Pt ambulated to [facility] for further care
[2020-08-24] MEDS ORDERED: HYDROcodone/APAP 5/325 MG 1 TAB TAB PO ONE (15:20)
--- NOTE | 2020-08-24 15:34 | NUR ---
Pt resting on gurney positioned for comfort. VSS
--- NOTE | 2020-08-24 15:35 | NUR ---
Patient taken to XRAY via wheelchair by tech.
--- NOTE | 2020-08-24 15:47 | NUR ---
Patient returned from XRAY.
[2020-08-24 16:19] VITALS: BP 125/52
--- NOTE | 2020-08-24 16:19 | NUR ---
Patient discharged with v/s stable. Written and verbal after care instructions given and explained. Patient alert, oriented and verbalized understanding of instructions. Ambulatory with steady gait. All questions addressed prior to discharge. ID band removed. Patient advised to follow up with PMD. Rx of NAPROSYN, ROBAXIN given. Patient educated on indication of medication including possible reaction and side effects. Opportunity to ask questions provided and answered.
== END 2020-08-24 16:19 | disposition home or self-care (01) ==
LOC: MED 13:51
DX: M54.5 Low back pain (principal); M79.641 Pain in right hand; E11.9 Type 2 diabetes mellitus without complications; I10 Essential (primary) hypertension; Z79.4 Long term (current) use of insulin; Z79.899 Other long term (current) drug therapy; Z88.1 Allergy status to other antibiotic agents; Z88.8 Allergy status to other drugs, medicaments and biological substances; Z88.2 Allergy status to sulfonamides
CPT/HCPCS: 72100; 73130; 81002; 99283; 99284

== ENCOUNTER 2020-09-05 02:33 | Emergency (ER) | payer OTHER ==
[~2020-09-05] VITALS: Ht 157.5 cm; Wt 63.5 kg
[2020-09-05 02:35] VITALS: BP 115/74
--- NOTE | 2020-09-05 02:38 | NUR ---
TO LOBBY A/W BED AMBULATORY
--- NOTE | 2020-09-05 03:00 | NUR ---
EKG PERFORMED IN TRIAGE ROOM. EKG READS SINUS RHYTHM @ 74
--- NOTE | 2020-09-05 03:08 | NUR ---
PT TAKEN TO BED #12
--- NOTE | 2020-09-05 03:15 | NUR ---
COVERING PRIMARY RN FOR LUNCH RELIEF--- SEE COMPLETE ASSESSMENT
[2020-09-05] MEDS ORDERED: ASPIRIN 325 MG TAB ONE (03:25)
--- NOTE | 2020-09-05 03:39 | NUR ---
Dr. Fink examining patient.
--- NOTE | 2020-09-05 03:39 | NUR ---
Farzaneh nevarez in [facility] - 09/05/20 at [address] Fink examining patient.
--- NOTE | 2020-09-05 03:40 | NUR ---
BLOOD DRAWN VIA IV START AND WALKED TO LAB.
--- NOTE | 2020-09-05 03:45 | NUR ---
PT REQUESTING PAIN MEDICATION. PT STATES "I WANT DILAUDID, FENTANYL IS TOO STRONG FOR ME. JUST WHATEVER THE DOCTOR WANTS TO GIVE ME" ERMD MADE AWARE.
[2020-09-05] MEDS ORDERED: HYDROcodone/APAP 5/325 MG 1 TAB TAB ONE (03:48)
[2020-09-05 03:55] LABS: BASOPHILS % (AUTO) 0.7 % (0.0-2.0); EOSINOPHILS # (AUTO) 0.2 K/uL (0-0.4); EOSINOPHILS % (AUTO) 3.6 % (0.0-4.0); HEMATOCRIT 33.7 % (36-48); HEMOGLOBIN 11.3 g/dL (12.0-16.0); LYMPHOCYTES # (AUTO) 2.8 K/uL (2.5-16.5); LYMPHOCYTES % (AUTO) 40.2 % (20.5-51.1); MEAN CORPUSCULAR HEMOGLOBIN 29 pg (27-31); MEAN CORPUSCULAR HGB CONC 34 g/dL (33-37); MEAN CORPUSCULAR VOLUME 85.4 fL (80-94); MONOCYTES # (AUTO) 0.5 K/uL (0.8-1.0); MONOCYTES % (AUTO) 7.4 % (1.7-9.3); NEUTROPHILS # (AUTO) 3.4 K/uL (1.8-7.7); NEUTROPHILS % (AUTO) 48.1 % (42.2-75.2); PLATELET COUNT (AUTO) 237 K/uL (140-450); RED BLOOD CELL COUNT(AUTO) 3.95 MIL/uL (4.20-5.40); RED CELL DISTRIBUTION WIDTH 13.4 % (11.6-13.7)
--- NOTE | 2020-09-05 04:02 | NUR ---
PT SAYS THE NORCO IS NOT GOING TO HELP HER CHEST PAIN. SHE TAKES OXYCODONE AT HOME AND SHE TOOK ONE WHEN HER CHEST PAIN STARTED AND SAYS IT DIDNT HELP. NOTIFIED MD AND HE IS AT BEDSIDE SPEAKING WITH HER NOW
[2020-09-05] MEDS: HYDROcodone/APAP 5/325 MG 1 TAB TAB PO ONE (04:05)
[2020-09-05] MEDS: PANTOPRAZOLE 40 MG INJ VIAL IVP ONE (04:05)
[2020-09-05 04:10] LABS: ALBUMIN 3.7 g/dL (3.4-5.0); ANION GAP 11.4 (8-16); CARBON DIOXIDE 27.5 mmol/L (21-32); CREATININE 1.2 mg/dL (0.6-1.3); POTASSIUM 3.9 mmol/L (3.5-5.1); TOTAL BILIRUBIN 0.2 mg/dL (0.0-1.0)
--- NOTE | 2020-09-05 04:27 | NUR ---
PT REQUESTING MORE PAIN MEDS, JO-ANN THE NORCO DIDN'T HELP HER PAIN AT ALL. NOTIFIED
--- NOTE | 2020-09-05 04:50 | NUR ---
PT CALLED CLOTH FINISHING RANGE OPERATOR CHIEF LIGHT, STILL HAVING CHEST PAIN 07/07, WANTED TO SPEAK WITH MD. DOCTOR NOTIFIED AND AT BEDSIDE
--- NOTE | 2020-09-05 04:55 | NUR ---
PT REMOVED HER OWN IV, STATING SINCE THE DOCTOR IS NOT HELPING HER PAIN SHE JUST WANTS TO GO HOME. SITE WAS BLEEDING, DRESSING APPLIED BY MYSELF.
[2020-09-05 04:59] VITALS: BP 97/62
--- NOTE | 2020-09-05 04:59 | NUR ---
Patient discharged with v/s stable. Written and verbal after care instructions given and explained. Patient alert, oriented and verbalized understanding of instructions. Ambulatory with steady gait. All questions addressed prior to discharge. ID band removed. Patient advised to follow up with PMD. Rx of PROTONIX given. Patient educated on indication of medication including possible reaction and side effects. Opportunity to ask questions provided and answered.
[2020-09-05] MEDS ORDERED: ASPIRIN 325 MG TABEC PO SCH (09:00)
== END 2020-09-05 04:59 | disposition other institution (70) ==
LOC: MED 02:33
DX: R07.9 Chest pain, unspecified (principal); E11.9 Type 2 diabetes mellitus without complications; I10 Essential (primary) hypertension; Z88.1 Allergy status to other antibiotic agents; Z88.2 Allergy status to sulfonamides; Z88.6 Allergy status to analgesic agent; Z79.899 Other long term (current) drug therapy; Z71.6 Tobacco abuse counseling
CPT/HCPCS: 36415; 71045; 80053; 83880; 84484; 85025; 93005; 96374; 99285; C9113

== ENCOUNTER 2022-08-02 17:42 | Emergency (ER) | payer OTHER ==
[~2022-08-02] VITALS: Ht 157.5 cm; Wt 54.9 kg
[~2022-08-02 17:42] MED LIST changes: -METF750T PO; +[UNRECOGNIZED DRUG - CODE] PO
[2022-08-02] MEDS ORDERED: IBUPROFEN 600 MG TAB PO ONE (18:05)
[2022-08-02 18:34] VITALS: BP 134/74
--- NOTE | 2022-08-02 18:53 | NUR ---
pt in room 1, medicated for chest wall pain 05/07, o2 sat 99% ra, sr up times 2. awaits xr
--- NOTE | 2022-08-02 19:15 | NUR ---
Patient sitting in bed, A/Ox4, chest rise and fall symmetrical, no s/s of distress.
[2022-08-02] MEDS ORDERED: NAPR-1704 PO (19:24)
[2022-08-02 19:28] VITALS: BP 121/78
--- NOTE | 2022-08-02 19:28 | NUR ---
ER Physician at bedside woth patient.
== END 2022-08-02 19:30 | disposition home or self-care (01) ==
LOC: MED 17:42
DX: S20.219A Contusion of unspecified front wall of thorax, initial encounter (principal); E11.9 Type 2 diabetes mellitus without complications; I10 Essential (primary) hypertension; Z88.2 Allergy status to sulfonamides; Z88.8 Allergy status to other drugs, medicaments and biological substances; Z79.899 Other long term (current) drug therapy; Z79.4 Long term (current) use of insulin; Z98.890 Other specified postprocedural states; Z90.710 Acquired absence of both cervix and uterus; Z88.1 Allergy status to other antibiotic agents; W20.8XXA Other cause of strike by thrown, projected or falling object, initial encounter; Y93.89 Activity, other specified; Y92.89 Other specified places as the place of occurrence of the external cause; Y99.0 Civilian activity done for income or pay
CPT/HCPCS: 71045; 71120; 99284

== ENCOUNTER 2023-01-20 18:21 | Emergency (ER) | payer OTHER ==
[~2023-01-20] VITALS: Ht 157.5 cm; Wt 55.8 kg
[~2023-01-20 18:21] MED LIST changes: +ACET-8905 PO; +ALPR2TAB1 PO; +ATOR10TA PO; +BACI-416 TP; +INSU100S22 SUBQ; +LISI5TAB18 PO; +NAPR-1704 PO
[2023-01-20 18:26] VITALS: BP 162/112
--- NOTE | 2023-01-20 18:31 | NUR ---
PT AMBULATED TO ER BED 1
[2023-01-20 19:11] LABS: BASOPHILS # (AUTO) 0.6 K/uL (0.00-0.22); BASOPHILS % (AUTO) 4.5 % (0.0-2.0); EOSINOPHILS # (AUTO) 0.4 K/uL (0-0.4); EOSINOPHILS % (AUTO) 2.9 % (0.0-4.0); HEMATOCRIT 37.9 % (36-48); HEMOGLOBIN 12.4 g/dL (12.0-16.0); LYMPHOCYTES # (AUTO) 2.6 K/uL (2.5-16.5); LYMPHOCYTES % (AUTO) 18.3 % (20.5-51.1); MEAN CORPUSCULAR HEMOGLOBIN 28 pg (27-31); MEAN CORPUSCULAR HGB CONC 33 g/dL (33-37); MONOCYTES # (AUTO) 0.5 K/uL (0.8-1.0); MONOCYTES % (AUTO) 3.8 % (1.7-9.3); NEUTROPHILS # (AUTO) 10.1 K/uL (1.8-7.7); NEUTROPHILS % (AUTO) 70.5 % (42.2-75.2); PLATELET COUNT (AUTO) 348 K/uL (140-450); RED BLOOD CELL COUNT(AUTO) 4.45 MIL/uL (4.20-5.40); RED CELL DISTRIBUTION WIDTH 14.7 % (11.6-13.7); WHITE BLOOD COUNT (AUTO) 14.3 K/uL (4.8-10.8)
--- NOTE | 2023-01-20 19:20 | NUR ---
PT WANTED TO KNOW THE UPDATE.
--- NOTE | 2023-01-20 19:25 | NUR ---
CHEST PAIN STARTED X2 DAYS AGO BUT HAS BECOME PROGRESSIVELY WORSE PMH: DM, HTN ALLERGIES: BACTRIM, TORADOL
[2023-01-20 19:39] LABS: ANION GAP 10.5 (8-16); CARBON DIOXIDE 25.5 mmol/L (21-32); TOTAL BILIRUBIN 0.3 mg/dL (0.0-1.0)
[2023-01-20] MEDS ORDERED: LID5T TP (20:26)
[2023-01-20] MEDS ORDERED: IBUP-1842 PO (20:26)
[2023-01-20] MEDS ORDERED: ATA25 PO (20:26)
[2023-01-20 20:31] VITALS: BP 136/98
--- NOTE | 2023-01-20 21:39 | NUR ---
Patient discharged with v/s stable. Written and verbal after care instructions given and explained. Patient alert, oriented and verbalized understanding of instructions. Ambulatory with steady gait. All questions addressed prior to discharge. ID band removed. Patient advised to follow up with PMD. Rx of atarax, motrin and lidocaine given. Patient educated on indication of medication including possible reaction and side effects. Opportunity to ask questions provided and answered.pt left with her belongings.
== END 2023-01-20 21:39 | disposition home or self-care (01) ==
LOC: MED 18:21
DX: R07.89 Other chest pain (principal); F41.9 Anxiety disorder, unspecified; I10 Essential (primary) hypertension; E11.9 Type 2 diabetes mellitus without complications; Z88.5 Allergy status to narcotic agent; Z88.8 Allergy status to other drugs, medicaments and biological substances; Z79.1 Long term (current) use of non-steroidal anti-inflammatories (NSAID); Z88.2 Allergy status to sulfonamides; Z79.4 Long term (current) use of insulin; Z79.899 Other long term (current) drug therapy
CPT/HCPCS: 36415; 71045; 80053; 83880; 84484; 85025; 93005; 99285

== ENCOUNTER 2023-06-21 18:55 | Emergency (ER) | payer OTHER ==
[~2023-06-21] VITALS: Ht 157.5 cm; Wt 61.2 kg
[~2023-06-21 18:55] MED LIST changes: +ATA25 PO; -BACI-416 TP; +BACI-418 TP; +IBUP-1842 PO; +LID5T TP
[2023-06-21 19:10] VITALS: BP 108/80; PULSE 89; RESP 17; TEMP 97.9; O2SAT 98
[2023-06-21 19:25] VITALS: BP 148/83; PULSE 91; RESP 15
[2023-06-21 19:47] LABS: HEMATOCRIT 38.4 % (36-48); HEMOGLOBIN 12.8 g/dL (12.0-16.0); MEAN CORPUSCULAR HEMOGLOBIN 28 pg (27-31); MEAN CORPUSCULAR HGB CONC 33 g/dL (33-37); PLATELET COUNT (AUTO) 289 K/uL (140-450); RED BLOOD CELL COUNT(AUTO) 4.51 MIL/uL (4.20-5.40); RED CELL DISTRIBUTION WIDTH 14.7 % (11.6-13.7); WHITE BLOOD COUNT (AUTO) 13.2 K/uL (4.8-10.8)
[2023-06-21] MEDS ORDERED: NACL 0.9% 1,000 ML IV ONE (19:55)
[2023-06-21 19:56] LABS: APPEARANCE,URINE CLEAR (CLEAR); BILIRUBIN,URINE NEGATIVE (NEGATIVE); BLOOD, URINE NEGATIVE (NEGATIVE); COLOR,URINE YELLOW (YELLOW); LEUKOCYTE ESTERASE ,URINE NEGATIVE (NEGATIVE); NITRITE, URINE NEGATIVE (NEGATIVE); PROTEIN,URINE NEGATIVE (NEGATIVE); UGLUCOSE NEGATIVE (NEGATIVE); UROBILINOGEN,URINE 0.2 EU/dL (0.2 - 1)
[2023-06-21 20:08] LABS: LACTIC ACID < 0.3 mmol/L (0.4-2.0)
[2023-06-21 20:17] LABS: ALBUMIN 3.8 g/dL (3.4-5.0); ANION GAP 13.5 (8-16); CALCIUM 8.6 mg/dL (8.5-10.1); CARBON DIOXIDE 25.2 mmol/L (21-32); CREATININE 0.9 mg/dL (0.6-1.3); POTASSIUM 3.7 mmol/L (3.5-5.1); TOTAL BILIRUBIN 0.3 mg/dL (0.0-1.0); TOTAL PROTEIN, SERUM 6.7 g/dL (6.4-8.2)
[2023-06-21 20:27] LABS: FREE T4 (FREE THYROXINE) 0.9 ng/dL (0.76-1.46); THYROID STIMULATING HORMONE 0.74 uIU/mL (0.34-3.74)
[2023-06-21 20:34] LABS: BASOPHILS % (MANUAL) 0 % (0-2); EOSINOPHILS % (MANUAL) 3 % (0-4); LYMPHOCYTES % (MANUAL) 25 % (20-46); MONOCYTES % (MANUAL) 1 % (5-12); PLATELET ESTIMATE ADEQUATE; SMUDGE CELLS FEW
[2023-06-21 20:49] LABS: INR 0.99 (0.8-1.2); PARTIAL THROMBOPLASTIN TIME 27.7 secs (22-35.6); PROTHROMBIN TIME 10.4 secs (10.8-13.4)
[2023-06-21 21:00] VITALS: O2SAT 96
[2023-06-23 08:08] LABS: ALANINE AMINOTRANSFERASE 20 IU/L (0-32); ASPARTATE AMINOTRANSFERASE 33 IU/L (0-40)
== END 2023-06-21 21:31 | disposition home or self-care (01) ==
LOC: MED 18:55
DX: D72.829 Elevated white blood cell count, unspecified (principal); R53.83 Other fatigue; H53.8 Other visual disturbances; I10 Essential (primary) hypertension; E11.9 Type 2 diabetes mellitus without complications; Z79.1 Long term (current) use of non-steroidal anti-inflammatories (NSAID); Z88.2 Allergy status to sulfonamides; Z88.5 Allergy status to narcotic agent; Z88.8 Allergy status to other drugs, medicaments and biological substances; Z79.4 Long term (current) use of insulin; Z79.899 Other long term (current) drug therapy
CPT/HCPCS: 36415; 70450; 71045; 80053; 81003; 83605; 84439; 84443; 84450; 84460; 85025; 85610; 85730; 87040; 96360; 99284; J7030; Q0092